=== PATIENT | female | born 1945 | race Caucasian/White ===

== ENCOUNTER 2017-10-31 17:22 | Inpatient (IN) | payer OTHER ==
[2017-10-31 19:58] LABS: ADD MAN DIFF? NO
[2017-10-31] MEDS: ONDANSETRON 4 MG INJ IV (20:06)
[2017-10-31] MEDS: HYDROmorphONE 0.5 MG/0.5 ML SYG IV (20:06)
[2017-10-31 20:10] LABS: BASOPHIL # 0.1 10^3/ul (0.0-0.1); BASOPHILS % 0.5 % (0.0-2.0); EOSINOPHILS % 0.2 % (0.0-7.0); HEMATOCRIT 33.5 % (37.0-47.0); HEMOGLOBIN 11.5 g/dl (12.0-16.0); LYMPHOCYTES # 1.8 10^3/ul (0.8-2.9); LYMPHOCYTES % 18.3 % (15.0-51.0); MEAN CORPUSCULAR HEMOGLOBIN 31.8 pg (29.0-33.0); MEAN CORPUSCULAR HGB CONC 34.3 g/dl (32.0-37.0); MEAN CORPUSCULAR VOLUME 92.5 fl (82.0-101.0); MEAN PLATELET VOLUME 9.5 fl (7.4-10.4); MONOCYTE # 0.8 10^3/ul (0.3-0.9); MONOCYTES % 7.7 % (0.0-11.0); NEUTROPHIL # 7.3 10^3/ul (1.6-7.5); NEUTROPHILS % 72.8 % (39.0-77.0); PLATELET COUNT 288 10^3/UL (140-415); RED BLOOD COUNT 3.62 10^6/ul (4.20-5.40); RED CELL DISTRIBUTION WIDTH 11.4 % (11.5-14.5)
[2017-10-31 20:10] LABS: WHITE BLOOD COUNT 10.1 10^3/ul (4.8-10.8)
[2017-10-31 20:23] LABS: ALANINE AMINOTRANSFERASE 29 IU/L (13-69); ALBUMIN 4.2 g/dl (3.3-4.9); ALKALINE PHOSPHATASE 120 IU/L (42-121); ANION GAP 16 (8-16); ASPARTATE AMINO TRANSFERASE 22 IU/L (15-46); BILIRUBIN,INDIRECT 0.2 mg/dl (0-1.1); BILIRUBIN,TOTAL 0.2 mg/dl (0.2-1.3); BLOOD UREA NITROGEN 19 mg/dl (7-20); CALCIUM 8.8 mg/dl (8.4-10.2); CARBON DIOXIDE 25 mmol/L (21-31); CHLORIDE 102 mmol/L (97-110); CREATININE 1.06 mg/dl (0.44-1.00); INR 1.04; POTASSIUM 4.5 mmol/L (3.5-5.1); PROTIME 13.7 Sec (11.9-14.9); PT RATIO 1.1; SODIUM 138 mmol/L (135-144); TOTAL PROTEIN 7.8 g/dl (6.1-8.1)
[2017-10-31 20:24] LABS: PARTIAL THROMBOPLASTIN TIME 31.5 Sec (25.0-35.0)
[2017-10-31 20:26] LABS: GLUCOSE 491 mg/dl (70-220)
[2017-10-31] MEDS: NICARDipine HCL 30 MG CAPSULE PO (20:39)
[2017-10-31] MEDS ORDERED: ACETAMINOPHEN 325 MG TAB PO (21:30)
[2017-10-31] MEDS ORDERED: ONDANSETRON 4 MG INJ IV (21:30)
[2017-10-31] MEDS: INSULIN LISPRO 100 UNIT/ML VIAL SC (21:30)
[2017-10-31] MEDS ORDERED: GLUCOSE GEL 15 GRAM TUBE PO ×2 (23:00)
[2017-10-31] MEDS ORDERED: DEXTROSE 50% 50 ML SYRINGE IV ×2 (23:00)
[2017-10-31] MEDS ORDERED: GLUCOSE GEL 15 GRAM TUBE BUCCAL (23:00)
[2017-10-31] MEDS ORDERED: GLUCAGON 1 MG INJ IM (23:00)
[2017-10-31] MEDS ORDERED: BENAZEPRIL 40 MG TAB PO (23:00)
[2017-11-01] MEDS: AMLODIPINE 10 MG TAB PO ×2 (01:32→08:14)
[2017-11-01] MEDS: INSULIN GLARGINE [LANTus] (100 UNITS/ML) SYG SC ×2 (01:35→22:21)
[2017-11-01] MEDS: ACCU-CHEK XX (01:35)
[2017-11-01] MEDS: SOD CHLORIDE 0.9% 500 ML IV (03:31)
[2017-11-01] MEDS: INSULIN ASPART [NOVOLOG] 3 ML PEN SC ×6 (07:55→23:13)
[2017-11-01] MEDS: GABAPENTIN 300 MG CAP PO ×3 (08:13→22:18)
[2017-11-01] MEDS: FERROUS SULFATE (EC) 325 MG TAB PO (08:13)
[2017-11-01] MEDS: BENAZEPRIL 40 MG TAB PO (08:13)
[2017-11-01] MEDS: CHLORTHALIDONE 25 MG TAB PO (08:14)
[2017-11-01] MEDS ORDERED: AMLODIPINE 10 MG TAB PO (09:00)
[2017-11-02] MEDS: ACCU-CHEK XX (02:22)
[2017-11-02] MEDS: INSULIN ASPART [NOVOLOG] 3 ML PEN SC ×7 (07:50→22:30)
[2017-11-02] MEDS: GABAPENTIN 300 MG CAP PO ×3 (10:04→22:22)
[2017-11-02] MEDS: FERROUS SULFATE (EC) 325 MG TAB PO (10:04)
[2017-11-02] MEDS: BENAZEPRIL 40 MG TAB PO (10:04)
[2017-11-02] MEDS: CHLORTHALIDONE 25 MG TAB PO (10:05)
[2017-11-02] MEDS: AMLODIPINE 10 MG TAB PO (10:07)
[2017-11-02] MEDS: morphine 2 MG INJ IV (13:50)
[2017-11-02] MEDS: INSULIN GLARGINE [LANTus] (100 UNITS/ML) SYG SC (22:28)
[2017-11-03] MEDS: ACCU-CHEK XX (02:46)
[2017-11-03] MEDS: INSULIN ASPART [NOVOLOG] 3 ML PEN SC ×8 (07:50→21:26)
[2017-11-03] MEDS: FERROUS SULFATE (EC) 325 MG TAB PO (08:19)
[2017-11-03] MEDS: GABAPENTIN 300 MG CAP PO ×3 (08:20→21:02)
[2017-11-03] MEDS: BENAZEPRIL 40 MG TAB PO (08:22)
[2017-11-03] MEDS: POLYETHYLENE GLYCOL 17 GM PACKET PO (18:02)
[2017-11-03 19:02] LABS: ADD MAN DIFF? NO
[2017-11-03 19:03] LABS: BASOPHILS % 0.4 % (0.0-2.0); EOSINOPHILS # 0.2 10^3/ul (0.0-0.5); EOSINOPHILS % 1.9 % (0.0-7.0); HEMATOCRIT 29.4 % (37.0-47.0); HEMOGLOBIN 9.8 g/dl (12.0-16.0); LYMPHOCYTES # 2.5 10^3/ul (0.8-2.9); LYMPHOCYTES % 25.9 % (15.0-51.0); MEAN CORPUSCULAR HEMOGLOBIN 31.3 pg (29.0-33.0); MEAN CORPUSCULAR HGB CONC 33.3 g/dl (32.0-37.0); MEAN CORPUSCULAR VOLUME 93.9 fl (82.0-101.0); MEAN PLATELET VOLUME 9.4 fl (7.4-10.4); MONOCYTE # 0.6 10^3/ul (0.3-0.9); MONOCYTES % 6.4 % (0.0-11.0); NEUTROPHIL # 6.2 10^3/ul (1.6-7.5); NEUTROPHILS % 64.9 % (39.0-77.0); PLATELET COUNT 287 10^3/UL (140-415); RED BLOOD COUNT 3.13 10^6/ul (4.20-5.40); RED CELL DISTRIBUTION WIDTH 11.4 % (11.5-14.5)
[2017-11-03 19:03] LABS: WHITE BLOOD COUNT 9.6 10^3/ul (4.8-10.8)
[2017-11-03] MEDS: SENNA TAB PO (21:02)
[2017-11-03] MEDS: INSULIN GLARGINE [LANTus] (100 UNITS/ML) SYG SC (21:26)
[2017-11-04] MEDS: ACCU-CHEK XX (02:00)
[2017-11-04] MEDS: DEXTROSE 5%-0.45% NACL 1,000 ML IV (05:40)
[2017-11-04] MEDS ORDERED: EPHEDrine SULFATE 50 MG/5 ML SYG (07:00)
[2017-11-04] MEDS: INSULIN ASPART [NOVOLOG] 3 ML PEN SC ×2 (09:00→13:00)
[2017-11-04] MEDS: BENAZEPRIL 40 MG TAB PO (09:00)
[2017-11-04] MEDS: FERROUS SULFATE (EC) 325 MG TAB PO (09:00)
[2017-11-04] MEDS: GABAPENTIN 300 MG CAP PO ×3 (09:00→20:56)
[2017-11-04] MEDS: SENNA TAB PO ×2 (09:00→20:49)
[2017-11-04] MEDS: POLYETHYLENE GLYCOL 17 GM PACKET PO (09:00)
[2017-11-04] MEDS ORDERED: PROPOFOL 40 ML (10:13)
[2017-11-04] MEDS ORDERED: MIDAZOLAM 1 MG/ML 2 ML INJ (10:13)
[2017-11-04] MEDS ORDERED: CEFAZOLIN 1 GM INJ (10:13)
[2017-11-04] MEDS ORDERED: morphine SULFATE/PF (10 MG/10 ML) INJ (10:14)
[2017-11-04] MEDS ORDERED: BUPIVACAINE 0.75%/DEXT (SPINAL) 2 ML INJ (10:16)
[2017-11-04] MEDS ORDERED: ACETAMINOPHEN 1000MG/100ML IV 100 ML (11:11)
[2017-11-04] MEDS ORDERED: METOCLOPRAMIDE 10 MG INJ (11:11)
[2017-11-04] MEDS ORDERED: DEXAMETHASONE 4 MG/ML 1 ML INJ (11:11)
[2017-11-04] MEDS ORDERED: EPINEPHrine 0.1 MG/ML SYG (11:11)
[2017-11-04] MEDS ORDERED: ONDANSETRON 4 MG INJ (11:11)
[2017-11-04] MEDS: POLYMYXIN/BACITRACIN 1L IRRIG (11:12)
[2017-11-04] MEDS ORDERED: HYDROmorphONE 0.5 MG/0.5 ML SYG IV (11:30)
[2017-11-04] MEDS ORDERED: NALBUPHINE HCL (10 MG/1 ML) INJ IV (11:30)
[2017-11-04] MEDS ORDERED: DIPHENHYDRAMINE 50 MG INJ IV (11:30)
[2017-11-04] MEDS ORDERED: HYDROCODONE/APAP (5/325) TAB PO (11:30)
[2017-11-04] MEDS ORDERED: morphine 2 MG INJ IV ×3 (11:30→12:30)
[2017-11-04] MEDS ORDERED: ACETAMINOPHEN 500 MG TAB PO (11:30)
[2017-11-04] MEDS ORDERED: NALOXONE (0.4 MG/ML) INJ IV (11:30)
[2017-11-04] MEDS: DEXTROSE 5%-LR 1,000 ML IV (12:04)
[2017-11-04] MEDS ORDERED: CEFAZOLIN 1 GM/50 ML (PMX) 50 ML IVPB (12:30)
[2017-11-04 12:46] LABS: ADD MAN DIFF? NO
[2017-11-04] MEDS ORDERED: HYDROmorphONE 1 MG/5 ML IV SYRINGE IV (12:46)
[2017-11-04 12:47] LABS: WHITE BLOOD COUNT 10.9 10^3/ul (4.8-10.8)
[2017-11-04 12:47] LABS: BASOPHIL # 0.1 10^3/ul (0.0-0.1); BASOPHILS % 0.6 % (0.0-2.0); EOSINOPHILS # 0.1 10^3/ul (0.0-0.5); EOSINOPHILS % 1.3 % (0.0-7.0); HEMATOCRIT 29.9 % (37.0-47.0); HEMOGLOBIN 9.9 g/dl (12.0-16.0); LYMPHOCYTES # 1.9 10^3/ul (0.8-2.9); LYMPHOCYTES % 17.8 % (15.0-51.0); MEAN CORPUSCULAR HEMOGLOBIN 31.2 pg (29.0-33.0); MEAN CORPUSCULAR HGB CONC 33.1 g/dl (32.0-37.0); MEAN CORPUSCULAR VOLUME 94.3 fl (82.0-101.0); MONOCYTE # 0.5 10^3/ul (0.3-0.9); MONOCYTES % 4.5 % (0.0-11.0); NEUTROPHIL # 8.2 10^3/ul (1.6-7.5); NEUTROPHILS % 75.3 % (39.0-77.0); PLATELET COUNT 288 10^3/UL (140-415); RED BLOOD COUNT 3.17 10^6/ul (4.20-5.40); RED CELL DISTRIBUTION WIDTH 11.6 % (11.5-14.5)
[2017-11-04] MEDS: HYDROmorphONE 0.5 MG/0.5 ML SYG IV (12:47)
[2017-11-04] MEDS: hydrALAzine 20 MG INJ IV (13:00)
[2017-11-04 13:15] LABS: ALANINE AMINOTRANSFERASE 24 IU/L (13-69); ALBUMIN 3.2 g/dl (3.3-4.9); ALBUMIN/GLOBULIN RATIO 0.91; ALKALINE PHOSPHATASE 114 IU/L (42-121); ANION GAP 12 (8-16); ASPARTATE AMINO TRANSFERASE 25 IU/L (15-46); BILIRUBIN,INDIRECT 0.2 mg/dl (0-1.1); BILIRUBIN,TOTAL 0.2 mg/dl (0.2-1.3); BLOOD UREA NITROGEN 27 mg/dl (7-20); CALCIUM 8.1 mg/dl (8.4-10.2); CARBON DIOXIDE 26 mmol/L (21-31); CHLORIDE 106 mmol/L (97-110); CREATININE 1.16 mg/dl (0.44-1.00); GLUCOSE 179 mg/dl (70-220); POTASSIUM 3.9 mmol/L (3.5-5.1); SODIUM 140 mmol/L (135-144); TOTAL PROTEIN 6.7 g/dl (6.1-8.1)
[2017-11-04] MEDS ORDERED: INSULIN ASPART [NOVOLOG] 3 ML PEN SC (17:25)
[2017-11-04] MEDS: CEFAZOLIN 1 GM/50 ML (PMX) 50 ML IVPB (18:01)
[2017-11-04] MEDS: LACTATED RINGER'S 1,000 ML IV (18:02)
[2017-11-04] MEDS: Insulin NOVOLOG SS MILD Algorithm (SS with meals and bedtime) SC ×2 (18:08→20:56)
[2017-11-04] MEDS: ONDANSETRON 4 MG INJ IV (18:29)
[2017-11-04] MEDS: INSULIN GLARGINE [LANTus] (100 UNITS/ML) SYG SC (20:54)
[2017-11-05] MEDS: CEFAZOLIN 1 GM/50 ML (PMX) 50 ML IVPB ×2 (01:56→10:28)
[2017-11-05 05:27] LABS: ADD MAN DIFF? NO
[2017-11-05 05:30] LABS: BASOPHILS % 0.1 % (0.0-2.0); HEMATOCRIT 28.7 % (37.0-47.0); HEMOGLOBIN 9.3 g/dl (12.0-16.0); LYMPHOCYTES % 10.7 % (15.0-51.0); MEAN CORPUSCULAR HEMOGLOBIN 31.2 pg (29.0-33.0); MEAN CORPUSCULAR HGB CONC 32.4 g/dl (32.0-37.0); MEAN CORPUSCULAR VOLUME 96.3 fl (82.0-101.0); MEAN PLATELET VOLUME 9.4 fl (7.4-10.4); MONOCYTE # 0.6 10^3/ul (0.3-0.9); MONOCYTES % 6.7 % (0.0-11.0); NEUTROPHIL # 7.5 10^3/ul (1.6-7.5); PLATELET COUNT 334 10^3/UL (140-415); RED BLOOD COUNT 2.98 10^6/ul (4.20-5.40); RED CELL DISTRIBUTION WIDTH 11.8 % (11.5-14.5)
[2017-11-05 05:30] LABS: WHITE BLOOD COUNT 9.2 10^3/ul (4.8-10.8)
[2017-11-05 06:06] LABS: ANION GAP 10 (8-16); BLOOD UREA NITROGEN 30 mg/dl (7-20); CALCIUM 8.2 mg/dl (8.4-10.2); CARBON DIOXIDE 29 mmol/L (21-31); CHLORIDE 107 mmol/L (97-110); CREATININE 1.08 mg/dl (0.44-1.00); GLUCOSE 213 mg/dl (70-220); POTASSIUM 4.8 mmol/L (3.5-5.1); SODIUM 141 mmol/L (135-144)
[2017-11-05] MEDS: LACTATED RINGER'S 1,000 ML IV (06:41)
[2017-11-05] MEDS: Insulin NOVOLOG SS MILD Algorithm (SS with meals and bedtime) SC ×4 (08:15→21:23)
[2017-11-05] MEDS: ENOXAPARIN 40 MG/0.4 ML SYG SC (08:16)
[2017-11-05] MEDS: POLYETHYLENE GLYCOL 17 GM PACKET PO (08:18)
[2017-11-05] MEDS: FERROUS SULFATE (EC) 325 MG TAB PO (08:19)
[2017-11-05] MEDS: SENNA TAB PO ×2 (08:19→21:23)
[2017-11-05] MEDS: BENAZEPRIL 40 MG TAB PO (08:19)
[2017-11-05] MEDS: GABAPENTIN 300 MG CAP PO ×3 (08:19→21:23)
[2017-11-05] MEDS: INSULIN ASPART [NOVOLOG] 3 ML PEN SC ×3 (08:36→17:55)
[2017-11-05] MEDS: INSULIN GLARGINE [LANTus] (100 UNITS/ML) SYG SC (21:20)
[2017-11-05] MEDS ORDERED: morphine LIQ (10 MG/5 ML) CUP PO (22:30)
[2017-11-06] MEDS: ACCU-CHEK XX (01:51)
[2017-11-06 05:16] LABS: ADD MAN DIFF? NO
[2017-11-06 05:19] LABS: WHITE BLOOD COUNT 8.7 10^3/ul (4.8-10.8)
[2017-11-06 05:19] LABS: BASOPHILS % 0.5 % (0.0-2.0); EOSINOPHILS # 0.2 10^3/ul (0.0-0.5); EOSINOPHILS % 2.5 % (0.0-7.0); HEMATOCRIT 27.4 % (37.0-47.0); HEMOGLOBIN 8.9 g/dl (12.0-16.0); LYMPHOCYTES # 2.7 10^3/ul (0.8-2.9); LYMPHOCYTES % 31.3 % (15.0-51.0); MEAN CORPUSCULAR HGB CONC 32.5 g/dl (32.0-37.0); MEAN CORPUSCULAR VOLUME 95.5 fl (82.0-101.0); MEAN PLATELET VOLUME 9.1 fl (7.4-10.4); MONOCYTE # 0.8 10^3/ul (0.3-0.9); MONOCYTES % 9.1 % (0.0-11.0); NEUTROPHIL # 4.9 10^3/ul (1.6-7.5); PLATELET COUNT 331 10^3/UL (140-415); RED BLOOD COUNT 2.87 10^6/ul (4.20-5.40); RED CELL DISTRIBUTION WIDTH 11.8 % (11.5-14.5)
[2017-11-06 05:44] LABS: ANION GAP 10 (8-16); BLOOD UREA NITROGEN 28 mg/dl (7-20); CALCIUM 8.2 mg/dl (8.4-10.2); CARBON DIOXIDE 28 mmol/L (21-31); CHLORIDE 107 mmol/L (97-110); CREATININE 1.12 mg/dl (0.44-1.00); GLUCOSE 112 mg/dl (70-220); POTASSIUM 3.9 mmol/L (3.5-5.1)
[2017-11-06 05:46] LABS: SODIUM 141 mmol/L (135-144)
[2017-11-06] MEDS: Insulin NOVOLOG SS MILD Algorithm (SS with meals and bedtime) SC ×4 (07:20→21:00)
[2017-11-06] MEDS ORDERED: ALENDRONATE 70 MG TAB PO (07:20)
[2017-11-06] MEDS: HYDROCODONE/APAP (5/325) TAB PO ×2 (07:22→11:49)
[2017-11-06] MEDS: INSULIN ASPART [NOVOLOG] 3 ML PEN SC ×3 (07:50→17:53)
[2017-11-06] MEDS: SENNA TAB PO ×2 (09:38→21:11)
[2017-11-06] MEDS: POLYETHYLENE GLYCOL 17 GM PACKET PO (09:38)
[2017-11-06] MEDS: FERROUS SULFATE (EC) 325 MG TAB PO (09:38)
[2017-11-06] MEDS: GABAPENTIN 300 MG CAP PO ×3 (09:38→21:11)
[2017-11-06] MEDS: METOPROLOL (XL) 50 MG TAB PO ×2 (09:40→21:12)
[2017-11-06] MEDS: SOD CHLORIDE 0.9% 1,000 ML IV (09:41)
[2017-11-06] MEDS: OXYCODONE/ACETAMINOPHEN (5/325) TAB PO (09:41)
[2017-11-06] MEDS: hydrALAzine 20 MG INJ IV ×2 (14:04→17:47)
[2017-11-06] MEDS: AMLODIPINE 5 MG TAB PO (16:01)
[2017-11-06] MEDS: INSULIN GLARGINE [LANTus] (100 UNITS/ML) SYG SC (21:13)
[2017-11-06] MEDS: HEPARIN 5,000 UNIT/0.5 ML VIAL SC (21:15)
[2017-11-07] MEDS: ACCU-CHEK XX (01:33)
[2017-11-07] MEDS: SOD CHLORIDE 0.9% 1,000 ML IV ×2 (02:10→04:29)
[2017-11-07 05:20] LABS: ADD MAN DIFF? NO
[2017-11-07 05:24] LABS: WHITE BLOOD COUNT 8.4 10^3/ul (4.8-10.8)
[2017-11-07 05:24] LABS: BASOPHILS % 0.5 % (0.0-2.0); EOSINOPHILS # 0.2 10^3/ul (0.0-0.5); EOSINOPHILS % 2.8 % (0.0-7.0); HEMATOCRIT 26.8 % (37.0-47.0); HEMOGLOBIN 8.6 g/dl (12.0-16.0); LYMPHOCYTES # 3.3 10^3/ul (0.8-2.9); LYMPHOCYTES % 38.6 % (15.0-51.0); MEAN CORPUSCULAR HEMOGLOBIN 30.8 pg (29.0-33.0); MEAN CORPUSCULAR HGB CONC 32.1 g/dl (32.0-37.0); MEAN CORPUSCULAR VOLUME 96.1 fl (82.0-101.0); MONOCYTE # 0.7 10^3/ul (0.3-0.9); MONOCYTES % 8.4 % (0.0-11.0); NEUTROPHIL # 4.1 10^3/ul (1.6-7.5); NEUTROPHILS % 49.1 % (39.0-77.0); PLATELET COUNT 307 10^3/UL (140-415); RED BLOOD COUNT 2.79 10^6/ul (4.20-5.40); RED CELL DISTRIBUTION WIDTH 11.8 % (11.5-14.5)
[2017-11-07 06:08] LABS: ANION GAP 8 (8-16); BLOOD UREA NITROGEN 28 mg/dl (7-20); CALCIUM 7.9 mg/dl (8.4-10.2); CARBON DIOXIDE 28 mmol/L (21-31); CHLORIDE 108 mmol/L (97-110); GLUCOSE 97 mg/dl (70-220); SODIUM 140 mmol/L (135-144)
[2017-11-07] MEDS: Insulin NOVOLOG SS MILD Algorithm (SS with meals and bedtime) SC ×2 (07:20→12:14)
[2017-11-07] MEDS: INSULIN ASPART [NOVOLOG] 3 ML PEN SC ×2 (07:50→12:15)
[2017-11-07] MEDS: GABAPENTIN 300 MG CAP PO ×3 (08:12→12:17)
[2017-11-07] MEDS: FERROUS SULFATE (EC) 325 MG TAB PO (08:12)
[2017-11-07] MEDS: SENNA TAB PO (08:12)
[2017-11-07] MEDS: HEPARIN 5,000 UNIT/0.5 ML VIAL SC (08:12)
[2017-11-07] MEDS: POLYETHYLENE GLYCOL 17 GM PACKET PO (08:13)
[2017-11-07] MEDS: METOPROLOL (XL) 50 MG TAB PO (08:13)
[2017-11-07] MEDS ORDERED: INSULIN GLARGINE [LANTus] (100 UNITS/ML) SYG SC (20:00)
[2017-11-08] MEDS ORDERED: METOPROLOL (XL) 50 MG TAB PO (09:00)
== END 2017-11-07 14:55 | disposition home health service (06) | DRG 481 ==
LOC: MS1 21:26 → E/R 17:22
PROC: 0QS706Z Reposition Left Upper Femur with Intramedullary Internal Fixation Device, Open Approach (ICD-10-PCS; principal; 2017-11-04 10:00)
DX: S72.142A Displaced intertrochanteric fracture of left femur, initial encounter for closed fracture (principal); N17.9 Acute kidney failure, unspecified; W19.XXXA Unspecified fall, initial encounter; I73.9 Peripheral vascular disease, unspecified; I12.9 Hypertensive chronic kidney disease with stage 1 through stage 4 chronic kidney disease, or unspecified chronic kidney disease; E11.22 Type 2 diabetes mellitus with diabetic chronic kidney disease; N18.9 Chronic kidney disease, unspecified; M81.0 Age-related osteoporosis without current pathological fracture; E11.65 Type 2 diabetes mellitus with hyperglycemia; W01.0XXA Fall on same level from slipping, tripping and stumbling without subsequent striking against object, initial encounter; Y93.01 Activity, walking, marching and hiking; Y92.019 Unspecified place in single-family (private) house as the place of occurrence of the external cause; Y99.8 Other external cause status; Z79.4 Long term (current) use of insulin; Z90.49 Acquired absence of other specified parts of digestive tract; Z89.432 Acquired absence of left foot
CPT/HCPCS: 71045; 73500; 73510; 73530; 80048; 80053; 80076; 82962; 83036; 85025; 85610; 85730; 93005; 93306; 96374; 96375; 97110; 97116; 97163; 97530; 99285-25